=== PATIENT | male | born 1995 | race Caucasian/White ===

== ENCOUNTER 2025-03-12 23:52 | Emergency (ER) | payer BC ==
[2025-03-13] MEDS: Ketorolac 30 MG/ML SDV IM STA (00:35)
== END 2025-03-13 00:55 | disposition home or self-care (01) ==
LOC: FB.ED 23:52 → SUPCPDRO 23:52 → FB.ED 03-13 00:55
DX: S29.012A Strain of muscle and tendon of back wall of thorax, initial encounter (principal); X50.0XXA Overexertion from strenuous movement or load, initial encounter; Y99.0 Civilian activity done for income or pay
CPT/HCPCS: 96372; 99283; A9270; J1885